=== PATIENT | female | born 1965 | race Caucasian/White ===

== ENCOUNTER 2018-05-13 06:55 | Day surgery (SDC) | payer OTHER ==
[~2018-05-13 06:55] MED LIST: Lactated Ringers 1,000 ML IV SCH; Sodium Chloride 0.9% 10 ML Syringe FLUSH PRN
[2018-05-13] MEDS ORDERED: Lidocaine 1% PF 2 ML SDV INJECT ONE (06:56)
[2018-05-13] MEDS ORDERED: Propofol 200 MG/20 ML SDV IV ONE (06:56)
--- NOTE | 2018-05-13 08:18 | PCM.OPNOTE ---
- General Post-Op/Procedure Note Date of Surgery/Procedure: 05/13/18 Operative Procedure(s): c scope Findings: normal exam Pre Op Diagnosis: screening Post-Op Diagnosis: normal exam Anesthesia Technique: Moderate Sedation Primary Surgeon: Joselito Carney Anesthesia Provider: Lincoln Garcia Pathology: none Complications: None Condition: Good Free Text/Narrative:: see dictation
[2018-05-13 08:52] VITALS: BP 117/66
--- NOTE | 2018-05-13 14:16 | OR ---
DATE OF OPERATION: 05/13/2018 SURGEON: Joselito Carney MD PROCEDURE PERFORMED: Screening colonoscopy. PREOPERATIVE DIAGNOSIS: Need for colon cancer screening. POSTOPERATIVE DIAGNOSIS: Normal exam. INDICATIONS FOR PROCEDURE: This is a 52-year-old white female who presents for initial screening C scope. She was offered and accepted same. DESCRIPTION OF OPERATION: After an excellent IV sedation was administered, digital rectal exam was performed. No marked abnormality was noted. Flexible colonoscope was inserted and advanced to the cecum. The prep was excellent. The following findings were noted. Ascending colon, unremarkable. Transverse colon, unremarkable. Descending colon, unremarkable. Sigmoid and rectum, unremarkable. Colon was deflated as the scope was removed. RECOMMENDATIONS: Repeat colonoscopy in 10 years. /[id number] /MODL
== END 2018-05-13 09:11 | disposition home or self-care (01) ==
LOC: FB.SDS 06:55
PROVIDERS: ATTEND Surgery
DX: Z12.11 Encounter for screening for malignant neoplasm of colon (principal); K21.9 Gastro-esophageal reflux disease without esophagitis; Z79.899 Other long term (current) drug therapy
CPT/HCPCS: J2001; J2704; J7120